=== PATIENT | female | born 1945 | race Caucasian/White ===

== ENCOUNTER 2020-02-08 10:48 | Emergency (ER) | payer MEDICARE, OTHER ==
[~2020-02-08] VITALS: Ht 162.6 cm; Wt 81.8 kg
[~2020-02-08 10:48] MED LIST: ALBU8.5H8 IH; ALBU8HFA PO; AMLO5TAB9 PO; BUDE10.22 IH; CHOL200041 PO; CLON0.5T4 PO; DICL75TA5 PO; ESOM40CA PO; FOLI1TAB15 PO; MECL-184 PO; METH2.5 PO; MONT10TA21 PO; NAPR-1193 PO; RAMI10CA69 PO; SIMV10TA97 PO; TRAM50TA4 PO; TRAZ-257 PO
[2020-02-08 13:07] LABS: BASOPHILS % (AUTO) 0.5 % (0.0-2.0); EOSINOPHILS % (AUTO) 7.4 % (1.0-6.0); HEMATOCRIT 31.3 % (36-46); HEMOGLOBIN 10.2 g/dL (12.0-16.0); LYMPHOCYTES # (AUTO) 2.2 K/uL (1.0-4.8); MEAN CORPUSCULAR HEMOGLOBIN 26.4 pg (26.0-34.0); MEAN CORPUSCULAR HGB CONC 32.5 G/dL (31.0-37.0); MEAN CORPUSCULAR VOLUME 81 fL (80-100); MONOCYTES # (AUTO) 0.8 K/uL (0.1-1.0); MONOCYTES % (AUTO) 8.1 % (2.0-9.0); NEUTROPHILS # (AUTO) 5.9 K/uL (1.8-7.7); PLATELET COUNT (AUTO) 258 K/uL (150-450); RED BLOOD CELL COUNT(AUTO) 3.86 MIL/uL (4.00-5.20); RED CELL DISTRIBUTION WIDTH 16.3 % (11.5-14.5)
[2020-02-08 13:22] LABS: ANION GAP 12 mmol/L (8-16); CALCIUM, TOTAL 8.7 mg/dL (8.8-10.5); CARBON DIOXIDE 25 mmol/L (22-29); CHLORIDE 104 mmol/L (98-107); CREATININE 0.58 mg/dL (0.60-1.30); GLUCOSE,RANDOM 96 mg/dL (70-110); POTASSIUM 4.2 mmol/L (3.5-5.1); SODIUM SERUM 141 mmol/L (136-145); UREA NITROGEN, BLOOD 12 mg/dL (7-18)
[2020-02-08 13:23] LABS: GLOMERULAR FILTR. RATE CALC > 60 mL/min (>60)
[2020-02-08 13:39] LABS: B-TYPE NATRIURETIC PEPTIDE 99 pg/mL (0-100)
[2020-02-08 13:47] LABS: ALANINE AMINOTRANSFERASE 16 U/L (12-78); ALKALINE PHOSPHATASE 86 U/L (46-116); ASPARTATE AMINOTRANSFERASE 25 U/L (15-37); BILIRUBIN,TOTAL 0.4 mg/dL (0.1-1.0); CREATINE KINASE, TOTAL ONLY 226 U/L (26-192); TOTAL PROTEIN, SERUM 8.1 g/dL (6.4-8.2)
[2020-02-08 14:13] LABS: APPEARANCE,URINE CLEAR (CLEAR); BILIRUBIN,URINE NEGATIVE (NEGATIVE); GLUCOSE, URINE (UA) NEGATIVE (NEGATIVE); KETONES,URINE NEGATIVE (NEGATIVE); LEUKOCYTE ESTERASE ,URINE NEGATIVE (NEGATIVE); NITRATE,URINE NEGATIVE (NEGATIVE); OCCULT BLOOD,URINE NEGATIVE (NEGATIVE); PROTEIN,URINE NEGATIVE (NEGATIVE)
[2020-02-08] MEDS ORDERED: HYDROCODONE/ACETAMINOPHEN 5-325 MG TABLET PO ONE (14:15)
[2020-02-08] MEDS ORDERED: MethylPREDNISolone SOD SUCC 125 MG/2 ML VIAL IVP ONE (14:15)
[2020-02-08] MEDS ORDERED: SODIUM CHLORIDE 0.9% 100 ML ONE (14:21)
[2020-02-08] MEDS ORDERED: IOVERSOL 350 MG/ML 100 ML VIAL ONE (14:21)
[2020-02-08 18:18] VITALS: BP 149/75
== END 2020-02-08 18:36 | disposition home or self-care (01) ==
LOC: EMS 10:55
DX: R06.02 Shortness of breath (principal); M19.90 Unspecified osteoarthritis, unspecified site; M54.2 Cervicalgia; M25.531 Pain in right wrist; M79.89 Other specified soft tissue disorders; J45.909 Unspecified asthma, uncomplicated; Z03.818 Encounter for observation for suspected exposure to other biological agents ruled out
CPT/HCPCS: 36415; 71045; 71275; 80053; 81003; 82550; 83880; 84484; 85025; 85379; 87635; 93005; 93971; 96374; 99285; J2930; J7050; Q9967

== ENCOUNTER 2023-03-31 16:12 | Emergency (ER) | payer MEDICARE, OTHER ==
[~2023-03-31] VITALS: Ht 149.9 cm; Wt 63.6 kg
[~2023-03-31 16:12] MED LIST changes: +AMLO-257 PO; -AMLO5TAB9 PO; -MECL-184 PO; +MECL-231 PO; +MONT-35 PO; -MONT10TA21 PO
[2023-03-31 16:15] VITALS: TEMP 98.9
[2023-03-31] MEDS ORDERED: ESOM40CA54 PO (16:29)
[2023-03-31] MEDS ORDERED: UNKNOWN BP MED PO (16:29)
[2023-03-31 17:50] VITALS: BP 138/66; PULSE 88; RESP 16
== END 2023-03-31 18:41 | disposition left against medical advice (07) ==
LOC: EMS 16:14
DX: R10.9 Unspecified abdominal pain (principal); R06.02 Shortness of breath; Z53.21 Procedure and treatment not carried out due to patient leaving prior to being seen by health care provider
CPT/HCPCS: 93005; 99281; Z7502